=== PATIENT | female | born 1965 | race Caucasian/White ===

== ENCOUNTER → 2018-02-12 | Outpatient (CLI) | payer OTHER ==
[2018-02-12 13:12] LABS: Source, Urine Clean Catch
[2018-02-12 17:44] LABS: Bilirubin, Urine Neg (Neg); Blood, Urine 1+ (Neg); Glucose Qualitative, Urine Neg (Neg); Ketones, Urine Neg (Neg); Leukocyte Esterase, Urine Neg (Neg); Nitrite, Urine Pos (Neg); Protein, Urine Neg (Neg); Urobilinogen, Urine NORM (Normal)
[2018-02-12 17:56] LABS: Appearance, Urine Hazy (Clear); Color, Urine Yellow (P-Yellow)
[2018-02-12 17:57] LABS: Bacteria Many /hpf; Red Blood Cells, Urine 0-2 /hpf (0-2); Squamous Epithelial Cells Few /hpf (Few)
== END ==
LOC: LAB SRC 12:53 → LAB SHORT 12:53
PROVIDERS: Registered Nurse
DX: R94.4 Abnormal results of kidney function studies (principal); R79.89 Other specified abnormal findings of blood chemistry
CPT/HCPCS: 81001; 87077; 87086; 87147; 87186

== ENCOUNTER → 2019-09-12 | Outpatient (CLI) | payer OTHER | END | disposition home or self-care (01) | LOC: LAB SHORT 07:51 → PLD 07:51 | DX: N95.0 Postmenopausal bleeding (principal) | CPT/HCPCS: 88305 ==

== ENCOUNTER → 2019-09-12 | Outpatient (CLI) | payer OTHER ==
[2019-09-16 14:07] LABS: HPV 16 Negative (Negative); HPV 18 Negative (Negative); HPV OTHER HR TYPES Negative (Negative)
== END | disposition home or self-care (01) ==
LOC: LAB 12:06 → LAB SHORT 12:06
PROVIDERS: Advanced Practice Midwife
DX: Z01.419 Encounter for gynecological examination (general) (routine) without abnormal findings (principal)
CPT/HCPCS: 87624; G0123